=== PATIENT | male | born 1965 | race Caucasian/White ===

== ENCOUNTER 2020-11-17 05:05 | Inpatient (IN) | payer BC ==
[~2020-11-17] VITALS: Ht 193 cm; Wt 166.9 kg
[2020-11-17] VITALS (11 sets, daily range): BP systolic 120–179; BP diastolic 67–97
[2020-11-17] MEDS ORDERED: DAYPRO600 MG PO (05:20)
[2020-11-17] MEDS ORDERED: TOPROL XL100 MG PO (05:21)
[2020-11-17] MEDS ORDERED: ROSUVASTATIN CA10 MG PO (05:21)
[2020-11-17] MEDS ORDERED: NEURONTIN 300M300 M2 PO (05:21)
[2020-11-17 05:44] LABS: ABSOLUTE BASOPHILS 0.1 thou/uL (0.0-0.2); ABSOLUTE EOSINOPHILS 0.1 thou/uL (0.0-0.7); ABSOLUTE LYMPHOCYTES 2.2 thou/uL (0.8-5.3); ABSOLUTE MONOCYTES 0.9 thou/uL (0.0-1.2); ABSOLUTE NEUTROPHILS 9.6 thou/uL (1.6-8.1); BASOPHILS 0.5 %; EOSINOPHILS 0.5 %; HEMATOCRIT 49.9 % (42.0-52.0); HEMOGLOBIN 17.1 gm/dL (14.0-18.0); LYMPHOCYTES 17.3 %; MCH 31.3 pg (26.0-34.0); MCHC 34.2 g/dL (28.0-37.0); MCV 91.4 fL (80.0-100.0); MONOCYTES 6.9 %; MPV 8.6 fl. (7.2-11.1); NUCLEATED RBCS 0 /100WBC; PLATELET COUNT* 195 thou/uL (150-400); POLYS 74.8 %; RBC 5.46 mil/uL (4.50-6.00); RDW-CV 14.3 % (10.5-14.5); WBC 12.8 thou/uL (4.0-11.0)
[2020-11-17 06:04] LABS: CALCIUM 9.1 mg/dL (8.5-10.1); CREATININE 1.2 mg/dL (0.6-1.3); POTASSIUM 4.3 mmol/L (3.5-5.1)
[2020-11-17 06:08] LABS: ALBUMIN 3.5 g/dL (3.4-5.0); TOTAL BILIRUBIN 0.5 mg/dL (<0.1-1.0); TOTAL PROTEIN 7.4 g/dL (6.4-8.2)
[2020-11-17] MEDS ORDERED: FISH OIL 1,001000 M3 PO (13:01)
[2020-11-17] MEDS ORDERED: MOVE FREE ULTR1 EAC1 PO (13:02)
[2020-11-17] MEDS ORDERED: ALLERGY RELIEF180 MG PO (13:04)
[2020-11-17] MEDS ORDERED: OTHER PO ×2 (13:06→13:07)
[2020-11-17] MEDS ORDERED: FLONASE 0.05%50 MCG NASAL (13:08)
[2020-11-18] VITALS (7 sets, daily range): BP systolic 106–131; BP diastolic 63–83
[2020-11-18 04:57] LABS: HEMATOCRIT 45.3 % (42.0-52.0); HEMOGLOBIN 15.6 gm/dL (14.0-18.0); MCH 31.6 pg (26.0-34.0); MCHC 34.4 g/dL (28.0-37.0); MPV 9.1 fl. (7.2-11.1); NUCLEATED RBCS 0 /100WBC; PLATELET COUNT* 187 thou/uL (150-400); RBC 4.92 mil/uL (4.50-6.00); RDW-CV 14.2 % (10.5-14.5); WBC 17.1 thou/uL (4.0-11.0)
[2020-11-18 05:10] LABS: ALBUMIN 3.4 g/dL (3.4-5.0); CALCIUM 9.2 mg/dL (8.5-10.1); POTASSIUM 3.5 mmol/L (3.5-5.1); TOTAL BILIRUBIN 0.4 mg/dL (<0.1-1.0); TOTAL PROTEIN 7.1 g/dL (6.4-8.2)
[2020-11-18 06:53] LABS: ABSOLUTE LYMPHOCYTES 1.5 thou/uL (0.8-5.3); ABSOLUTE MONOCYTES 0.2 thou/uL (0.0-1.2); ABSOLUTE NEUTROPHILS 15.4 thou/uL (1.6-8.1); PLATELET ESTIMATE ADEQUATE
--- NOTE | 2020-11-18 09:48 | EKG ---
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: PRAVIN : 1965 Requested By: Alma Rosa Mixon Order Number: [id number] MD: Saul Tom Measurements Intervals [place] Rate: 70 P: 39 AK: 146 QRS: 16 QRSD: 95 T: 11 QT: 391 QTc: 422 Interpretive Statements Sinus rhythm Low voltage, precordial leads Baseline wander in lead(s) V4 No previous ECG available for comparison Electronically Signed On 11-18-2020 9:48:07 CDT by Saul Tom [email or web address] <ELECTRONICALLY SIGNED> By: Saul Tom MD, [facility] 11/18/20 0948 0550 0550 Saul Tom MD, [facility] /EPI
[2020-11-19 05:13] LABS: ABSOLUTE LYMPHOCYTES 1.1 thou/uL (0.8-5.3); ABSOLUTE MONOCYTES 0.6 thou/uL (0.0-1.2); ABSOLUTE NEUTROPHILS 15.3 thou/uL (1.6-8.1); BASOPHILS 0.1 %; HEMATOCRIT 46.9 % (42.0-52.0); HEMOGLOBIN 15.7 gm/dL (14.0-18.0); LYMPHOCYTES 6.5 %; MCH 30.9 pg (26.0-34.0); MCHC 33.4 g/dL (28.0-37.0); MCV 92.3 fL (80.0-100.0); MONOCYTES 3.8 %; MPV 9.5 fl. (7.2-11.1); NUCLEATED RBCS 0 /100WBC; PLATELET COUNT* 213 thou/uL (150-400); POLYS 89.6 %; RBC 5.08 mil/uL (4.50-6.00); RDW-CV 14.3 % (10.5-14.5); WBC 17.1 thou/uL (4.0-11.0)
[2020-11-19 05:23] VITALS: BP 118/71
[2020-11-19 05:30] LABS: ALBUMIN 3.1 g/dL (3.4-5.0); CALCIUM 8.9 mg/dL (8.5-10.1); POTASSIUM 4.1 mmol/L (3.5-5.1); TOTAL BILIRUBIN 0.4 mg/dL (<0.1-1.0); TOTAL PROTEIN 6.7 g/dL (6.4-8.2)
[2020-11-19 08:00] VITALS: BP 122/74
[2020-11-19 11:32] VITALS: BP 122/74
[2020-11-19] MEDS ORDERED: DECADRON4 MG PO (12:46)
[2020-11-19] MEDS ORDERED: PEPCID20 MG PO (12:46)
[2020-11-19] MEDS ORDERED: BANOPHEN25 MG PO (12:47)
[2020-11-19 14:44] VITALS: BP 122/74
== END 2020-11-19 14:56 | disposition home or self-care (01) | DRG 916 ==
LOC: M.ERS 05:05 → M.TBA-ER 06:48 → M.2W 06:48 → M.ICU 09:27 → M.2W 16:41
PROVIDERS: Personal Emergency Response Attendant; ADMIT Internal Medicine; ATTEND Internal Medicine
DX: T78.3XXA Angioneurotic edema, initial encounter (principal); Z68.41 Body mass index [BMI] 40.0-44.9, adult; I10 Essential (primary) hypertension; M19.90 Unspecified osteoarthritis, unspecified site; E78.00 Pure hypercholesterolemia, unspecified; F12.90 Cannabis use, unspecified, uncomplicated; R73.9 Hyperglycemia, unspecified; D72.829 Elevated white blood cell count, unspecified; E66.9 Obesity, unspecified; E78.5 Hyperlipidemia, unspecified; G89.29 Other chronic pain; M54.9 Dorsalgia, unspecified; Z20.822 Contact with and (suspected) exposure to COVID-19; Z60.2 Problems related to living alone; Z88.2 Allergy status to sulfonamides; Z88.8 Allergy status to other drugs, medicaments and biological substances; Z87.891 Personal history of nicotine dependence